=== PATIENT | female | born 1970 ===

== ENCOUNTER 2018-05-05 07:41 | Emergency (ER) | payer OTHER ==
[2018-05-05 07:57] VITALS: BP 132/77
--- NOTE | 2018-05-05 08:08 | ED PDOC ---
Arrival/HPI - General Chief Complaint: Upper Extremity Problem/Injury Time Seen by Provider: 05/05/18 07:45 Historian: Patient, Stoner Hand (VIKASH Alvarez) - History of Present Illness Narrative History of Present Illness (Text): 05/05/18 08:07 47 year old female, with no significant past medical history, presents to the emergency department for evaluation s/p hit by a "high/low" cart today at work. Patient reports she was hit on her left hip and then fell on her right side injuring her shoulder. Patient reports right shoulder pain, neck pain, and left hip pain, but denies any loss of consciousness, fever, chills, chest pain, shortness of breath, nausea, vomiting, diarrhea, back pain, headache, dizziness , or any other complaints. Stoner Hand: VIKASH Alvarez. Time/Duration: Prior to Arrival Symptom Onset: Sudden Symptom Course: Unchanged Activities at Onset: Light Context: Work Past Medical History - Provider Review Nursing Documentation Reviewed: Yes - Cardiac Hx Cardiac Disorders: No - Pulmonary Hx Respiratory Disorders: No - Neurological Hx Neurological Disorder: No - HEENT Hx HEENT Disorder: No - Renal Hx Renal Disorder: No - Endocrine/Metabolic Hx Endocrine Disorders: No - Hematological/Oncological Hx Blood Disorders: No - Integumentary Hx Dermatological Disorder: No - Musculoskeletal/Rheumatological Hx Arthritis: Yes - Genitourinary/Gynecological Hx Genitourinary Disorders: No - Psychiatric Hx Psychophysiologic Disorder: No Hx Substance Use: No - Surgical History Hx Cholecystectomy: Yes Family/Social History - Physician Review Nursing Documentation Reviewed: Yes Family/Social History: No Known Family HX Smoking Status: Never Smoked Hx Alcohol Use: No Hx Substance Use: No Allergies/Home Meds Allergies/Adverse Reactions: Allergies No Known Allergies Allergy (Verified 05/05/18 07:57) Review of Systems - Review of Systems Constitutional: absent: Fatigue, Fevers, Other (Chills) Respiratory: absent: SOB, Wheezing Cardiovascular: absent: Chest Pain, GODOY Gastrointestinal: absent: Abdominal Pain, Diarrhea, Nausea, Vomiting Musculoskeletal: Neck Pain, Other (left hip pain and right shoulder pain). absent: Back Pain Skin: absent: Rash, Laceration Neurological: absent: Headache, Dizziness, Focal Weakness, Other (loss of consciousness) Hemo/Lymphatic: absent: Easy Bleeding Physical Exam - Physical Exam Narrative Physical Exam (Text): Head: Atraumatic. Normocephalic. No scalp deformity or ecchymosis. Eyes: PERRL. EOMI. Conjunctivae are not pale. ENT: Mucous membranes are moist and intact. Oropharynx is clear and symmetric. No facial bony tenderness or deformity. Neck: Supple. Full ROM. No JVD. No lymphadenopathy. Mild right sided paraspinal tenderness with no deformity. Mild midline pain. NO limitation with range of motion or rotation of neck. Cardiovascular: Regular rate. Regular rhythm. No murmurs, rubs, or gallops. Distal pulses are 2+ and symmetric. Pulmonary/Chest: No evidence of respiratory distress. Clear to auscultation bilaterally. No wheezing, rales or rhonchi. No chest wall pain. NO crepitus. Abdominal: Soft and non-distended. There is no tenderness. No rebound, guarding, or rigidity. No organomegaly. Good bowel sounds. Back: No CVA tenderness. No midline spinal tenderness in lumbar or thoracic region. No edema or deformity. Extremities: No edema. No cyanosis. No clubbing. Full range of motion in all extremities. No calf tenderness. No hip or knee or ankle pain with range of motion. No ecchymosis. MILD pain to lateral left hip on deep palpation. No significant pain with ambulation. Pain to right shoulder posteriorly although no deformity, mild pain with ROM of shoulder but able to abduct and adduct with minimal limitation. NO clavicular pain. No elbow or wrist pain. Skin: Skin is warm and dry. No petechiae. No purpura. No lacerations. No ecchymosis. Neurological: Alert, awake, and oriented. No slurred speech. Steady gait. No focal motor or sensory deficits. Psychiatric: Good eye contact. Normal interaction, affect, and behavior. 05/05/18 08:31 Vital Signs Reviewed: Yes Vital Signs Temp Pulse Resp BP Pulse Ox 05/05/18 09:28 97.9 F 80 19 98 05/05/18 07:52 98.5 F 78 18 132/77 100 Temperature: Afebrile Blood Pressure: Normal Pulse: Regular Respiratory Rate: Normal Appearance: Positive for: Well-Appearing, Non-Toxic, Comfortable Pain Distress: Mild Mental Status: Positive for: Alert and Oriented X 3 Medical Decision Making ED Course and Treatment: 05/05/18 08:08 Impression: 47 year old female presents complaining of left hip pain, right shoulder pain, and neck pain s/p being hit by a "high/low" cart on the left hip and falling on her right shoulder. Plan: -- Cervical Spine x-ray -- Hip Left 2V x-ray -- Right Shoulder X-ray -- Reassess and disposition Progress Notes: closing agent is present. No loss of consciousness. No nausea or dizziness. No chest pain or shortness of breath. No deformity. Ambulatory. Xrays obtained of shoulder, neck, hip. PROCEDURE: Left Hip and pelvis X-ray Radiographs. Dictator : Salas Mack MD Report Date : 05/05/2018 10:18:09 IMPRESSION: Negative study PROCEDURE: Radiographs of the Right Shoulder Dictator : Salas Mack MD Report Date : 05/05/2018 10:16:44 IMPRESSION: Normal radiographs of the right shoulder. PROCEDURE: Cervical Spine Radiographs Dictator : Salas Mack MD Report Date : 05/05/2018 10:16:10 IMPRESSION: Normal cervical spine radiographs 05/05/18 08:33 On re-evaluation, patient feels better and is in no acute distress. I have discussed the results and plan with the patient, who expresses understanding. Patient in agreement with plan to be discharged home. Patient is stable for discharge. Patient was instructed to follow up with physician or return if symptoms worsen or new concerning symptoms arise. - RAD Interpretation Radiology Orders: 05/05/18 08:08 CERVICAL SPINE >18YR W/OBLIQUE [RAD] Stat SHOULDER RIGHT [RAD] Stat 05/05/18 08:09 Hip Left [HIP MIN 2V W/ PELVIS LT] [RAD] Stat - Scribe Statement The provider has reviewed the documentation as recorded by the Scribe Maverick Trujillo Provider Scribe Attestation: All medical record entries made by the Scribe were at my direction and personally dictated by me. I have reviewed the chart and agree that the record accurately reflects my personal performance of the history, physical exam, medical decision making, and the department course for this patient. I have also personally directed, reviewed, and agree with the discharge instructions and disposition. Disposition/Present on Arrival - Present on Arrival Any Indicators Present on Arrival: No History of DVT/PE: No History of Uncontrolled Diabetes: No Urinary Catheter: No History of Decub. Ulcer: No History Surgical Site Infection Following: None - Disposition Have Diagnosis and Disposition been Completed?: Yes Diagnosis: Shoulder contusion, Cervical strain, Contusion, hip Disposition: HOME/ ROUTINE Disposition Time: 08:33 Patient Plan: Discharge Condition: GOOD Discharge Instructions (ExitCare): Contusion (DC), Cervical Muscle Strain (DC) Print Language: SAMOAN Additional Instructions: For any headaches, any nausea, any numbness or weakness, any chest pain or shortness of breath, any tingling, any dizziness, any persistent or worsening of any symptoms, get rechecked. Follow-up with your physician in 1-2 days. Prescriptions: Ibuprofen [Ibu] 400 mg PO Q8 PRN #10 tablet PRN Reason: Pain, Mild (1-3) Forms: [facility] (Samoan), WORK NOTE
[2018-05-05 09:29] VITALS: PULSE 80; RESP 19; TEMP 97.9; O2SAT 98
--- NOTE | 2018-05-05 10:17 | RAD ---
Date of service: 05/05/2018 PROCEDURE: Cervical Spine Radiographs. HISTORY: Pain. COMPARISON: None. FINDINGS: BONES: Alignment maintained. No fracture. Dens Intact. DISC SPACES: Normal. SOFT TISSUES: Normal. No prevertebral soft tissue swelling. OTHER FINDINGS: None. IMPRESSION: Normal cervical spine radiographs
--- NOTE | 2018-05-05 10:18 | RAD ---
Date of service: 05/05/2018 PROCEDURE: Radiographs of the Right Shoulder HISTORY: shoulder pain after fall COMPARISON: No prior. FINDINGS: BONES: Normal. No fracture. JOINTS: Normal. Glenohumeral and acromioclavicular joints preserved. No osteoarthritis. SOFT TISSUES: Normal. OTHER FINDINGS: None. IMPRESSION: Normal radiographs of the right shoulder.
--- NOTE | 2018-05-05 10:19 | RAD ---
PROCEDURE: Left Hip and pelvis X-ray Radiographs. HISTORY: hip pain after fall COMPARISON: None. FINDINGS: BONES: Normal. No fracture. JOINTS: Normal. SOFT TISSUES: Normal. OTHER FINDINGS: None. IMPRESSION: Negative study
== END 2018-05-05 09:32 | disposition home or self-care (01) ==
LOC: ED 07:41
DX: S40.011A Contusion of right shoulder, initial encounter (principal); S16.1XXA Strain of muscle, fascia and tendon at neck level, initial encounter; S70.02XA Contusion of left hip, initial encounter; W18.09XA Striking against other object with subsequent fall, initial encounter; Y99.0 Civilian activity done for income or pay

== ENCOUNTER 2019-01-20 09:05 | Outpatient (CLI) | payer SELFPAY, OTHER | END 2019-01-20 09:06 | disposition home or self-care (01) | LOC: LAB 09:05 | DX: M06.09 Rheumatoid arthritis without rheumatoid factor, multiple sites (principal) ==